=== PATIENT | female | born 1980 | race Caucasian/White ===

== ENCOUNTER → 2016-09-10 | Outpatient (CLI) | payer OTHER ==
[~2016-09-10] MED LIST: ALDACTONE25 MG PO; ALLEGRA180 MG PO; DHEA25 M1 PO; ETHINYL ESTRADIOL; FENOFIBRATE160 MG PO; FLUOXETINE HCL40 M1 PO; GLUCOPHAGE500 MG PO; METAMUCIL1 PKT PO; NORGESTIMATE; SINGULAIR PO; SYNTHROID PO
--- NOTE | ~2016-09-10 | CT7 ---
[facility] A Service [facility] RADIOLOGY TEXT RESULTS PATIENT: BONI GREY LOCATION: [facility] : 76 UNIT #: [id number] AGE: [address]: BRONWYN BYNUM SEX: F ORDER DR: [id number] [place] [id number] O MR#: [id number] Acc #: [id number] NAME: BONI GREY : 1980 SEX: F STUDY DATE/TIME: 09/10/2016 15:17 UNIT: [facility] ROOM: STUDY DESCRIPTION: CT Abdomen Wo Cont Attending Physician: Bronwyn Bynum Aprn Referring Physician: Bronwyn Bynum Aprn Ordering Physician: Opal Franklin M.D. Primary Care Physician: Opal Franklin M.D. MEDICAL IMAGING REPORT This report is preliminary unless electronic signature is present. EXAM CT abdomen without contrast INDICATION Intermittent upper abdominal and left-sided abdominal pain since Lap-Band surgery 3 years ago. COMPARISON None PROCEDURE Unenhanced CT of the abdomen and pelvis. This CT exam was performed with one or more of the following radiation dose reduction techniques: automatic exposure control, adjustment of mA and/or kV according to patient size, and iterative reconstruction. FINDINGS ABDOMEN WITHOUT CONTRAST: The included lung bases are clear. The Lap-Band is in place and appropriately positioned. No identifiable complication. Very mild hepatic steatosis. Otherwise liver and spleen are unremarkable. The kidneys, pancreas, gallbladder unremarkable. Included bowel loops are nondilated. 3.0 cm benign left adrenal adenoma. No aggressive appearing bone lesion. IMPRESSION 1. No acute findings. 2. Lap-Band appropriately positioned with no identifiable complication. 3. Very mild hepatic steatosis. 4. Benign left adrenal adenoma. [facility] A Service [facility] RADIOLOGY TEXT RESULTS PATIENT: BONI GREY LOCATION: [facility] : 76 UNIT #: [id number] AGE: [address]: BRONWYN BYNUM SEX: F ORDER DR: Dictated by... Kareem Villaseñor M.D. THIS IS AN ELECTRONICALLY VERIFIED REPORT Kareem Villaseñor M.D. at 09/16/2016 1:55 PM Timo TD: 09/13/2016 10:21 JOB #: [id number] MEDICAL IMAGING REPORT Page 1 of 1
== END | disposition home or self-care (01) ==
LOC: SCT 14:48
DX: R10.12 Left upper quadrant pain (principal); K76.0 Fatty (change of) liver, not elsewhere classified; D35.02 Benign neoplasm of left adrenal gland
CPT/HCPCS: 74150